=== PATIENT | female | born 1945 | race Hispanic/Latino ===

== ENCOUNTER → 2017-07-14 | Day surgery (SDC) | payer MEDICARE, BC ==
[2017-07-12 11:16] LABS: BASOPHILS % 0.4 % (0.0-1.0); EOSINOPHILS # (AUTO) 0.1 (0.0-0.4); EOSINOPHILS % 1.8 % (0.0-6.0); HEMATOCRIT 33.1 % (34.2-44.1); HEMOGLOBIN 10.8 g/dL (12.0-16.0); LYMPHOCYTES # (AUTO) 0.7 (1.0-3.2); LYMPHOCYTES % 14.7 % (18.0-39.1); MEAN CORPUSCULAR HEMOGLOBIN 30.9 pg (28-32); MEAN CORPUSCULAR HGB CONC 32.6 g/dL (31-35); MEAN CORPUSCULAR VOLUME 94.8 fL (81-99); MONOCYTES # (AUTO) 0.4 (0.2-0.8); NEUTROPHILS # (AUTO) 3.8 (2.1-6.9); NEUTROPHILS % 75.7 % (38.7-80.0); PLATELET COUNT 150 x10e3/uL (140-360); RED BLOOD COUNT 3.49 x10e6/uL (3.6-5.1); RED CELL DISTRIBUTION WIDTH 13.9 % (11.7-14.4)
[2017-07-12 11:38] LABS: ANION GAP 11.4 mmol/L (8-16); CALCIUM 10.6 mg/dL (8.4-10.2); CREATININE, SERUM 1.54 mg/dL (0.57-1.11); POTASSIUM 5.4 mmol/L (3.5-5.1)
--- NOTE | 2017-07-12 11:39 | Diagnostic Imaging Report ---
PROCEDURE: Frontal and lateral views of the chest. COMPARISON: Chest radiograph 03/04/2017 INDICATIONS: PRE-OP FOR STENT PLACEMENT FINDINGS: Lines/tubes: None. Lungs: The lungs are well inflated and clear. There is no evidence of pneumonia or pulmonary edema. Pleura: There is no pleural effusion or pneumothorax. Heart and mediastinum: Aortic arch calcifications. The heart and the mediastinum are normal. Bones: No acute bony abnormality. IMPRESSION: No acute cardiopulmonary disease. Dictated by: Chinmay Zambrano M.D. on 07/12/2017 at 11:38 Electronically approved by: Chinmay Zambrano M.D. on 07/12/2017 at 11:38
[~2017-07-14] MED LIST: ALENDRONATE SOD70 MG PO; AMLODIPINE BESYL5 MG PO; ATORVASTATIN CA40 MG PO; BELLADONNA/OPIUM 60 MG SUPP PR ONE; CEFTIN250 MG PO; CEFUROXIME250 MG PO; DEXAMETHASONE SOD PHOS INJ 4 MG/ML VIAL ONE; DEXTROSE 5% 250ML 250 ML IV ONE; DIPHENOXYLATE-1 EAC2 PO; ECOTRIN325 MG PO; FERROUS SULFAT325 MG PO; GABAPENTIN300 MG PO; GENTAMICIN 80MG/NS 100 ML 100 ML IV ONE; HYDROCODONE-AP1 EA12 PO; IOPAMIDOL 610MG/1ML 300 MG/ML VIAL IV ONE; LEVOFLOXACIN 250MG/D5W 50ML 50 ML ONE; LEVOTHYROXINE88 MCG PO; LIDOCAINE HCL 2% LOCAL INJ 5 ML SDV VIAL INJ ONE; LIPITOR40 MG PO; LOPERAMIDE2 MG PO; LOSARTAN POTAS100 MG PO; LOSARTAN-HCTZ1 EAC1 PO; METFORMIN HCL500 MG PO; NAPROXEN SODIU500 MG PO; ONDANSETRON HCL INJ 2 MG/ML VIAL ONE; PROPOFOL IV EMULSION 10 MG/ML 20 ML VIAL ONE; SERTRALINE HCL50 MG PO; SEVOFLURANE INHAL SOLN 250 ML PEN BTL ONE; TRAMADOL HCL50 M1 PO; TRANSDERM-SCOP1 EACH TOP; VITAMIN C500 M1 PO; VITAMIN C500 MG PO; Z.0.LEVOTHYROXINE150 PO; Z.0.LORAZEPAM1 MG PO; Z.0.METOPROLOL SUCC2 PO; Z.0.ZOFRAN4 MG PO; Z.1.AMLODIPINE-BEN1 PO; Z.1.MINOCYCLINE HC10 PO; [UNRECOGNIZED DRUG - CODE] TD
--- OUTSIDE RECORDS SUMMARY | 2017-07-14 09:09 | XMS REPORT ---
Author Author [facility] Address Unknown Phone Unavailable Care Team Providers Care Residential Field Manager Name Role Phone DINORA PALUMBO Unavailable Unavailable Problems This patient has no known problems. Allergies, Adverse Reactions, Alerts This patient has no known allergies or adverse reactions. Medications This patient has no known medications. Results Test Description Test Time Test Comments Text Results Atomic Results Result Comments CHEST 2 VIEWS [place] [address] Patient Name: ANKITA ROY MR #: [id number] : 1945 Age/Sex: 71/F Req #: [id number] Adm Physician: Ordered by: DINORA PALUMBO MD Report #: [id number] Location: OR Room/Bed: Procedure: [id number] DX/CHEST 2 VIEWS Exam Date: 07/12/17 Exam Time: 1115 REPORT STATUS: Signed PROCEDURE: Frontal and lateral views of the chest. COMPARISON: Chest radiograph 03/04/2017 INDICATIONS: PRE-OP FOR STENT PLACEMENT FINDINGS: Lines/tubes: None. Lungs : The lungs are well inflated and clear. There is no evidence of pneumonia or pulmonary edema. Pleura: There is no pleural effusion or pneumothorax. Heart and mediastinum: Aortic arch calcifications. The heart and the mediastinum are normal. Bones: No acute bony abnormality. IMPRESSION: No acute cardiopulmonary disease. Dictated by: Chinmay Rios M.D. on 07/12/2017 at 11:38 Electronically approved by: Chinmay Rios M.D. on 07/12/2017 at 11:38 Dictated By: CHINMAY RIOS MD COPY TO: DINORA PALUMBO MD CHEST 2 VIEWS [place] [address] Patient Name: ANKITA ROY MR #: [id number] : 1945 Age/Sex: 71/F Req #: [id number] Adm Physician: Ordered by: DINORA PALUMBO MD Report #: [id number] Location: OR Room/Bed: Procedure: [id number] DX/CHEST 2 VIEWS Exam Date: Exam Time: REPORT STATUS: Signed PROCEDURE: CHEST 2 VIEWS COMPARISON: Chest x- ray, 08/18/16. INDICATIONS: pre op for renal stent FINDINGS: Lines and tubes: None Heart size normal. No focal pulmonary opacity, pleural effusion or pneumothorax. Upper abdomen unremarkable with no free air. No acute bony abnormality. Again noted are surgical clips in the abdomen. CONCLUSION: No evidence for acute disease. Dictated by: Randy Monzon M.D. on 03/04/2017 at 15:14 Electronically approved by: Randy Monzon M.D. on 03/04/2017 at 15:14 Dictated By: RANDY MONZON MD 13 COPY TO: DINORA PALUMBO MD RENAL SCAN W/FLOW FUNCTION [address], [place] [address] Patient Name: ANKITA ROY MR #: [id number] : 1945 Age/Sex: 71/F [facility] #: [id number] [facility] Physician: Ordered by: DINORA PALUMBO MD Report #: [id number] Location: ID Room/Bed: Procedure: [id number] NM/RENAL SCAN W/FLOW FUNCTION Exam Date: 02/12/17 Exam Time: 1445 REPORT STATUS: Signed Renal Scan Reason for exam: Hydronephrosis; multiple stent placements in the previous 7 years. Comparison: Prior renal scan 06/12/2016 Radiopharmaceutical: Tc-99m MAG3 9.8 mCi Report: After administration of the radiopharmaceutical, dynamic images of the kidneys were obtained through 40 minutes. LEFT KIDNEY: Perfusion is imperceptible. No tracer is seen in the left renal bed until about 18 minutes post administration of the tracer when some pooling of tracer is seen in the left renal pelvis and proximal ureter. The function of the kidney is too impaired to be able to fill the pelvicalyceal system or ureter to capacity. No drainage of tracer is seen from the pelvicalyceal system because of the minimal amount of tracer excreted. No tracer is seen within the left ureter. RIGHT KIDNEY: Perfusion to the right kidney is prompt. The right kidney has a distorted reniform shape with irregular contour and patchy distribution of tracer throughout the renal parenchyma. Extraction of tracer by the renal parenchyma is normal. Clearance of tracer from the renal parenchyma begins promptly but is not complete by the end of the study. The pelvicalyceal system is not dilated although the renal pelvis is slightly prominent. Some increased pooling of tracer within the renal pelvis is present. Drainage of tracer from the pelvicalyceal system is adequate. No significant stasis of tracer is seen within the right ureter. DIFFERENTIAL RENAL FUNCTION: Left kidney 5% and right kidney 95%. Impression: 1. The left kidney has only a miniscule amount of tracer in the renal parenchyma. The amount of parenchyma may be the same or less than on the prior study of 2016. Drainage cannot be assessed because the pelvicalyceal system does not fill to near capacity. 2. Scan evidence of medical renal disease in the right kidney. Some scarring is present as evidenced by the irregular contour of the kidney. No hydronephrosis is present. No obstruction of the renal collecting system is present. The appearance of the kidney and its drainage pattern are unchanged compared to the prior study of 06/12/2016. Signed by: Dr. Joseph Brito M.D. on 02/13/2017 5:09 PM Dictated By: JOSEPH BRITO MD 08 Transcribed By: BRADLEY on 02/13/171708 COPY TO: DINORA PALUMBO MD
--- OUTSIDE RECORDS SUMMARY | 2017-07-14 09:09 | XMS REPORT | Clinical Summary ---
Author Author [facility] Organization [facility] Address Unknown Phone Unavailable Care Team Providers Care It Security Administrator Name Role Phone Faisal Piña MD PCP Allergies Active Allergy Reactions Severity Noted Date Comments Penicillins 06/12/2016 Current Medications Prescription Sig. Disp. Refills Start End Date Status Date gabapentin (NEURONTIN) Take 300 mg by mouth 3 Active 300 mg capsule (three) times a day. ascorbic acid, vitamin C, Take 500 mg by mouth Active (VITAMIN C) 500 MG tablet daily. losartan (COZAAR) 100 MG Take 100 mg by mouth Active tablet daily. losartan-hydrochlorothiaz Take 1 tablet by mouth Active ermelinda (HYZAAR) 100-25 mg daily. per tablet sertraline (ZOLOFT) 50 MG Take 50 mg by mouth Active tablet daily. ferrous sulfate 325 (65 Take 325 mg by mouth Active FE) MG tablet daily with breakfast. levothyroxine (SYNTHROID, Take 150 mcg by mouth Active LEVOXYL) 150 mcg tablet every morning. atorvastatin (LIPITOR) 40 Take 40 mg by mouth Active MG tablet daily. aspirin (ECOTRIN) 81 MG Take 81 mg by mouth Active enteric coated tablet daily. metFORMIN (GLUCOPHAGE) Take 500 mg by mouth Active 500 mg tablet daily with breakfast. Active Problems Problem Noted Date Hypertensive nephrosclerosis 06/12/2016 Encounters Date Type Specialty Care Team Description 08/18/2016 Telephone Transplant Luisa Gabriel Kidney Eval Appts ( Spoke to pts daughter Marion so we could schedule pts next appt she stated she will need to call me back she said she is taking her mother to all this appts for this month and she is the only one that takes pt to her appts she is not able to bring her at this time. She stated she is going to let her sister know so she could try to schedule the appts that she needs for her. She stated she will call me back when her mother is ready to schedule.) 08/07/2016 Telephone Transplant Christianne Gabrielcy Kidney Eval Appts 07/31/2016 Telephone Transplant GabrielChristiannecy Kidney Eval Appt 07/28/2016 Telephone Transplant Michaela Bolton RD Nutrition Counseling 07/28/2016 Documentation Transplant Michaela Bolton RD 07/28/2016 Telephone Transplant Michaela Bolton RD Nutrition Counseling 07/20/2016 Telephone Transplant Luisa Gabriel Appointment 07/14/2016 Orders Only Transplant Fermin Luque RN ESRD (end stage renal disease) (Primary Dx) after 07/13/2016 Social History Tobacco Use Types Packs/Day Years Used Date Never Smoker Smokeless Tobacco: Never Used Sex Assigned at Date Recorded Not on file Last Filed Vital Signs Not on file Plan of Treatment Health Maintenance Due Date Last Done Comments COLONOSCOPY 09/24/1997 MAMMOGRAM 09/24/1997 ZOSTER VACCINE 2007 INFLUENZA VACCINE 12/15/2016 06/14/2012 PNEUMOCOCCAL Completed 09/22/2010 POLYSACCHARIDE VACCINE AGE 65 AND OVER PNEUMOCOCCAL-13 Completed 10/04/2015 Results Not on fileafter 07/13/2016 Insurance Payer Benefit Subscriber ID Type Phone Address Plan / Group MEDICARE MEDICARE xxxxxxxxxx Medicare [place], [place] PART B [facility] xxxxxxxxx HMO/PPO THCARE CHOICE/CHO ICE + BRENDA RAHMAN Transplant Self 1945 Home: [address] [place] [address]
--- NOTE | 2017-09-05 13:16 | Operative Report ---
DATE OF PROCEDURE: July 14, 2017 PREOPERATIVE DIAGNOSES 1. Left ureteral stricture. 2. Left hydronephrosis due to stricture. 3. Foreign body (left indwelling stent). 4. Atrophic vaginitis. POSTOPERATIVE DIAGNOSES 1. Left ureteral stricture. 2. Left hydronephrosis due to stricture. 3. Foreign body (left indwelling stent). 4. Atrophic vaginitis. PROCEDURES PERFORMED 1. Cystourethroscopy with complicated removal of left indwelling ureteral stent (separately performed with separate scope for the diagnosis of stent). 2. Cystourethroscopy with dilation of left ureteral stricture (separately performed for diagnosis of stricture). 3. Cystourethroscopy with insertion of left indwelling ureteral stent (separately performed to relieve the hydronephrosis). 4. Cystourethroscopy with right ureteral catheterization and retrograde ureteropyelography. 5. Interpretation of retrograde ureteropyelography. 6. Urological services for supervision and interpretation of stricture dilation. 7. Pelvic examination under anesthesia. ANESTHESIA: General. COMPLICATIONS: None. CLINICAL SUMMARY: Brenda Rahman is a 71-year-old woman with an atrophic left kidney. This kidney has been destroyed by ureteral stricture. Her creatinine is approximately 1.5. She has chronic renal insufficiency with functionally solitary right kidney. Multiple times, the patient has been recommended to undergo nephrectomy. She is resistant and desires regular ureteral stenting and stent changes at the present time. She is aware of the risks of bleeding, infection, injury to adjacent structures, sepsis, and need for additional procedures and elected to proceed. OPERATIVE PROCEDURE IN DETAIL: Informed consent was verified. Brenda Rahman was properly identified, taken to the operating room, and placed on the cystoscopy table in supine position. Anesthesia was uneventfully begun. The patient was then carefully and gently repositioned in dorsal lithotomy position with all pressure points well padded and her genitalia were prepared and draped in usual sterile fashion. The 22.5-Khmer cystoscope sheath with an obturator in place was atraumatically inserted in the patient's urethra and the bladder was drained. Panendoscopy in the bladder revealed no suspicious growths, lesions, no tumors, and no stones and no diverticula. Normally positioned and configured ureteral orifices were identified. Some fine sand was noted and it was evacuated. A guidewire was then placed alongside the stent and guided to the level of the patient's kidney. The stent was then grasped, completely removed, and discarded. Double-lumen ureteral catheter was then utilized as a coaxial dilator sheath. It was passed over the guidewire and guided to the level of the patient's kidney. Contrast was injected. Under cystoscopic and fluoroscopic guidance, a left-sided indwelling ureteral stent was coiled in patient's kidney as well as the patient's bladder. The retaining suture was cut short. The ureteral catheter was used to cannulate the right ureter and retrograde ureteropyelography was performed. Interpretation of retrograde ureteropyelography: Contrast was instilled in retrograde fashion bilaterally. The right side exhibited no hydronephrosis. No suspicious lesions. The ureter exhibited some tortuosity, was not obstructed. The left hand side exhibited an extremely small kidney with a dilated renal pelvis and proximal ureter. The stent was in good position coiled in the patient's kidney as well as the patient's bladder at the end of the case. Patient's bladder was then drained. The cystoscope was withdrawn. Pelvic examination under anesthesia revealed atrophic vaginitis. No suspicious mucosal lesions were identified. There were no abnormal palpable pelvic masses that could be appreciated. Patient was then uneventfully reversed from anesthesia and taken to recovery room in stable condition. Explicit postoperative instructions were given. We will follow the patient up in the office. Job#: [id number] BEATA
== END | disposition home or self-care (01) ==
LOC: OR 09:06
PROVIDERS: ATTEND Urology
DX: N13.1 Hydronephrosis with ureteral stricture, not elsewhere classified (principal); Z46.6 Encounter for fitting and adjustment of urinary device; N95.2 Postmenopausal atrophic vaginitis; N26.9 Renal sclerosis, unspecified; N13.8 Other obstructive and reflux uropathy; N39.0 Urinary tract infection, site not specified; E11.22 Type 2 diabetes mellitus with diabetic chronic kidney disease; I12.9 Hypertensive chronic kidney disease with stage 1 through stage 4 chronic kidney disease, or unspecified chronic kidney disease; N18.9 Chronic kidney disease, unspecified; I45.10 Unspecified right bundle-branch block; Z01.810 Encounter for preprocedural cardiovascular examination; Z01.812 Encounter for preprocedural laboratory examination; Z01.818 Encounter for other preprocedural examination; Z79.82 Long term (current) use of aspirin; Z86.73 Personal history of transient ischemic attack (TIA), and cerebral infarction without residual deficits; Z84.1 Family history of disorders of kidney and ureter
CPT/HCPCS: 36415 ×2; 52332; 52341; 71046; 74420; 80048; 82948; 84132; 85025; 93005; C1758; C2617; J1100; J1580; J1956; J2001; J2405; Q9967

== ENCOUNTER → 2017-10-20 | Day surgery (SDC) | payer MEDICARE, BC ==
[2017-10-19 15:44] LABS: HEMATOCRIT 32.2 % (34.2-44.1); HEMOGLOBIN 10.5 g/dL (12.0-16.0); MEAN CORPUSCULAR HEMOGLOBIN 30.9 pg (28-32); MEAN CORPUSCULAR HGB CONC 32.6 g/dL (31-35); MEAN CORPUSCULAR VOLUME 94.7 fL (81-99); RED CELL DISTRIBUTION WIDTH 13.3 % (11.7-14.4)
[2017-10-19 15:45] LABS: EOSINOPHILS # (AUTO) 1.8 (0.0-0.4); EOSINOPHILS % 0.1 % (0.0-6.0); LYMPHOCYTES # (AUTO) 15.8 (1.0-3.2); LYMPHOCYTES % 0.8 % (18.0-39.1); MONOCYTES # (AUTO) 6.9 (0.2-0.8); MONOCYTES % 0.4 % (4.4-11.3); NEUTROPHILS # (AUTO) 74.9 (2.1-6.9); NEUTROPHILS % 3.8 % (38.7-80.0); PLATELET COUNT 163 x10e3/uL (140-360)
[2017-10-19 16:05] LABS: ANION GAP 10.8 mmol/L (8-16); POTASSIUM 4.8 mmol/L (3.5-5.1)
[2017-10-19 16:06] LABS: ALBUMIN 3.7 g/dL (3.5-5.0); ALBUMIN/GLOBULIN RATIO 1.1 (0.8-2.0); CALCIUM 10.6 mg/dL (8.4-10.2); CREATININE, SERUM 1.41 mg/dL (0.57-1.11)
[~2017-10-20] MED LIST changes: +BELLADONNA/OPIUM 30 MG SUPP RC ONE; -BELLADONNA/OPIUM 60 MG SUPP PR ONE; +DESFLURANE 240 ML BTL INH ONE; -DEXTROSE 5% 250ML 250 ML IV ONE; +EPHEDRINE SULFATE INJ 50 MG/10 ML SYR ONE; +FENTANYL CITRATE/PF 100MCG/2 ML INJ ONE; -GENTAMICIN 80MG/NS 100 ML 100 ML IV ONE; -LEVOFLOXACIN 250MG/D5W 50ML 50 ML ONE; +LEVOFLOXACIN 500MG/D5W 100ML 100 ML IV ONE; +MIDAZOLAM HCL 2 MG/2 ML VIAL ONE; -PROPOFOL IV EMULSION 10 MG/ML 20 ML VIAL ONE; +PROPOFOL IV EMULSION 10 MG/ML 50 ML VIAL ONE; -SEVOFLURANE INHAL SOLN 250 ML PEN BTL ONE
--- OUTSIDE RECORDS SUMMARY | 2017-10-20 07:10 | XMS REPORT | Clinical Summary ---
Author Author [facility] Organization [facility] Address Unknown Phone Unavailable Care Team Providers Care Hop Weigher Name Role Phone Faisal Piña MD PCP [...] Problems Problem Noted Date Hypertensive nephrosclerosis 06/12/2016 Social History Tobacco Use Types Packs/Day Years Used Date Never Smoker Smokeless Tobacco: Never Used Sex Assigned at Date Recorded Not on file Last Filed Vital Signs Not on file Plan of Treatment Health Maintenance Due Date Last Done Comments BREAST CANCER SCREENING 09/24/1997 COLON CANCER SCREENING 09/24/1997 SHINGRIX VACCINE (#1) 09/24/1997 ZOSTER VACCINE 2007 INFLUENZA VACCINE 12/15/2017 06/14/2012 PNEUMOCOCCAL Completed 09/22/2010 POLYSACCHARIDE VACCINE AGE 65 AND OVER PNEUMOCOCCAL-13 Completed 10/04/2015 Results Not on fileafter 10/19/2016 Insurance Payer Benefit Subscriber ID Type Phone Address Plan / Group MEDICARE MEDICARE xxxxxxxxxx Medicare [place], [place] PART B [facility] xxxxxxxxx HMO/PPO THCARE CHOICE/CHO ICE + BRENDA RAHMAN Transplant Self 1945 Home: [address] [place] [address]
--- NOTE | 2017-11-30 15:05 | Operative Report ---
DATE OF PROCEDURE: October 20, 2017 PREOPERATIVE DIAGNOSES: 1. Left ureteral stricture. 2. Left hydronephrosis due to stricture. 3. Left foreign body (indwelling ureteral stent). 4. Atrophic vaginitis. POSTOPERATIVE DIAGNOSES: 1. Left ureteral stricture. 2. Left hydronephrosis due to stricture. 3. Left foreign body (indwelling ureteral stent). 4. Atrophic vaginitis. PROCEDURES PERFORMED: 1. Cystourethroscopy with complicated removal of left indwelling ureteral stent (separate procedure performed with separate scope for the diagnosis of stent). 2. Cystourethroscopy with dilation of left ureteral stricture (separate procedure performed for diagnosis of the stricture). 3. Radiological services for supervision and interpretation of stricture dilation. 4. Cystourethroscopy with insertion of left indwelling ureteral stent (separate procedure performed to relieve the hydronephrosis). 5. Interpretation of retrograde ureteropyelography. 6. Pelvic examination under anesthesia. ANESTHESIA: General. COMPLICATIONS: None. CLINICAL SUMMARY: Brenda Rahman is a 72-year-old woman with the above preoperative diagnoses, who is brought for the above procedures. The patient has a 5% functionality of her left kidney and she has been recommended to undergo left nephrectomy numerous times. The patient chooses to continue with stent changing as has been done. She is aware of the risks of bleeding, infection, injury to adjacent structures, need for additional procedures and elected to proceed. OPERATIVE PROCEDURE IN DETAIL: Informed consent was verified. Brenda Rahman was properly identified, taken to the operating room, placed on the cystoscopy table in supine position. Anesthesia was uneventfully begun. The patient was then carefully and gently re-positioned in the dorsal lithotomy position with all pressure points well padded. Her genitalia were prepared and draped in usual sterile fashion. The 22.5-Romansh cystoscope sheath with obturator in place was atraumatically inserted to the patient's urethra and the bladder was drained. Panendoscopy of the urinary bladder revealed a stent emerging from the left ureteral orifice. There were no suspicious mucosal lesions. A guidewire was then placed alongside the stent and guided to the level of the patient's kidney. The stent was then grasped completely and removed and discarded. A double lumen ureteral catheter was then utilized as a coaxial dilator sheath. It was passed over the guidewire and guided to the level of the patient's renal pelvis thus dilating the severe ureteral stricture. This resulted in a clear hydronephrotic drip. Contrast was injected. With cystoscopic and fluoroscopic guidance, a left-sided indwelling ureteral stent was then placed. It was coiled in the patient's kidney as well as patient's bladder. The retaining suture was cut short. Interpretation of retrograde ureterography: Contrast was instilled in retrograde fashion on the left hand side. The patient's left kidney was very small. There was chronic appearing hydronephrosis and fullness. The stent was in good position, coiled in the patient's kidney as well as the patient's bladder at the end of the case. There were multiple clips within the abdomen. The patient's bladder was drained. The cystoscope was withdrawn. Pelvic examination under anesthesia revealed atrophic vaginitis with a very short vagina. No suspicious mucosal lesions were identified and there were no abnormal palpable pelvic masses that could be appreciated. Belladonna and opium suppository was placed and the patient was uneventfully reversed from anesthesia and taken to recovery room in stable condition. There were no complications during the procedure. She tolerated the procedure well. Explicit postoperative instructions were given. Will follow the patient up in the office. Plans will be to change her stent in the near future and on a regular basis should the patient not allow us to perform a left nephrectomy on her as recommended. Job#: [id number] cc:LAST ERICKSON MD
== END | disposition home or self-care (01) ==
LOC: OR 07:08
PROVIDERS: ATTEND Urology
DX: N13.1 Hydronephrosis with ureteral stricture, not elsewhere classified (principal); Z46.6 Encounter for fitting and adjustment of urinary device; N95.2 Postmenopausal atrophic vaginitis; M19.90 Unspecified osteoarthritis, unspecified site; I10 Essential (primary) hypertension; E78.5 Hyperlipidemia, unspecified; E11.9 Type 2 diabetes mellitus without complications; E03.9 Hypothyroidism, unspecified; I69.344 Monoplegia of lower limb following cerebral infarction affecting left non-dominant side; F32.9 Major depressive disorder, single episode, unspecified; F41.9 Anxiety disorder, unspecified; Z88.0 Allergy status to penicillin; Z01.810 Encounter for preprocedural cardiovascular examination; Z01.812 Encounter for preprocedural laboratory examination; Z79.82 Long term (current) use of aspirin; Z79.84 Long term (current) use of oral hypoglycemic drugs; Z85.41 Personal history of malignant neoplasm of cervix uteri
CPT/HCPCS: 36415 ×2; 52332; 52341; 74420; 80053; 82948; 85025; 87086; 93005; C2617; J1100; J1956; J2001; J2250; J2405; Q9967

== ENCOUNTER 2018-03-14 10:51 | Inpatient (IN) | payer BC, MEDICARE ==
--- NOTE | 2018-03-11 15:23 | Diagnostic Imaging Report ---
EXAMINATION: CHEST 2 VIEWS INDICATION: Hydronephrosis. Abdominal pain. Urethral stricture. COMPARISON: July 12, 2017 FINDINGS: TUBES and LINES: None. LUNGS: Lungs are well inflated. Lungs are clear. There is no evidence of pneumonia or pulmonary edema. PLEURA: No pleural effusion or pneumothorax. HEART AND MEDIASTINUM: Tortuous thoracic aorta with calcification at the aortic arch. Heart normal in size. BONES AND SOFT TISSUES: No acute osseous lesion. Soft tissues are unremarkable. UPPER ABDOMEN: No free air under the diaphragm. IMPRESSION: No acute thoracic abnormality. Signed by: Dr. J Carlos Holm M.D. on 03/11/2018 3:19 PM
[2018-03-11 15:30] LABS: BASOPHILS % 0.2 % (0.0-1.0); EOSINOPHILS # (AUTO) 0.2 (0.0-0.4); EOSINOPHILS % 3.3 % (0.0-6.0); HEMATOCRIT 30.5 % (34.2-44.1); HEMOGLOBIN 9.6 g/dL (12.0-16.0); LYMPHOCYTES # (AUTO) 0.9 (1.0-3.2); LYMPHOCYTES % 16.4 % (18.0-39.1); MEAN CORPUSCULAR HEMOGLOBIN 30.7 pg (28-32); MEAN CORPUSCULAR HGB CONC 31.5 g/dL (31-35); MEAN CORPUSCULAR VOLUME 97.4 fL (81-99); MONOCYTES # (AUTO) 0.3 (0.2-0.8); MONOCYTES % 6.3 % (4.4-11.3); NEUTROPHILS % 73.6 % (38.7-80.0); PLATELET COUNT 155 x10e3/uL (140-360); RED BLOOD COUNT 3.13 x10e6/uL (3.6-5.1); RED CELL DISTRIBUTION WIDTH 13.5 % (11.7-14.4)
[2018-03-11 15:54] LABS: ALBUMIN 4.1 g/dL (3.5-5.0); ALBUMIN/GLOBULIN RATIO 1.3 (0.8-2.0); ANION GAP 11.9 mmol/L (8-16); CALCIUM 11.1 mg/dL (8.4-10.2); CREATININE, SERUM 1.16 mg/dL (0.57-1.11); POTASSIUM 4.9 mmol/L (3.5-5.1)
[2018-03-14] VITALS (20 sets, daily range): BP systolic 134–159; BP diastolic 59–80
[~2018-03-14] VITALS: Ht 165.1 cm; Wt 73.5 kg
[~2018-03-14 10:51] MED LIST changes: +ASPIR 8181 MG PO; -BELLADONNA/OPIUM 30 MG SUPP RC ONE; -DESFLURANE 240 ML BTL INH ONE; -DEXAMETHASONE SOD PHOS INJ 4 MG/ML VIAL ONE; -EPHEDRINE SULFATE INJ 50 MG/10 ML SYR ONE; -FENTANYL CITRATE/PF 100MCG/2 ML INJ ONE; -IOPAMIDOL 610MG/1ML 300 MG/ML VIAL IV ONE; -LEVOFLOXACIN 500MG/D5W 100ML 100 ML IV ONE; -LIDOCAINE HCL 2% LOCAL INJ 5 ML SDV VIAL INJ ONE; -MIDAZOLAM HCL 2 MG/2 ML VIAL ONE; -ONDANSETRON HCL INJ 2 MG/ML VIAL ONE; -PROPOFOL IV EMULSION 10 MG/ML 50 ML VIAL ONE; +SYNTHROID100 MCG PO
--- OUTSIDE RECORDS SUMMARY | 2018-03-14 10:54 | XMS REPORT | Clinical Summary ---
Author Author [facility] Organization [facility] Address Unknown Phone Unavailable Care Team Providers Care Motorsports Technician Name Role Phone Ulices Piña MD PCP Allergies Active Allergy Reactions [...] CANCER SCREENING 09/24/1997 SHINGRIX VACCINE (#1) 09/24/1997 INFLUENZA VACCINE 12/15/2017 06/14/2012 PNEUMOCOCCAL Completed 09/22/2010 POLYSACCHARIDE VACCINE AGE 65 AND OVER ZOSTER VACCINE Completed 11/17/2011 PNEUMOCOCCAL-13 Completed 10/04/2015 Results Not on fileafter 03/13/2017 Insurance Payer Benefit Subscriber ID Type Phone Address Plan / Group MEDICARE MEDICARE xxxxxxxxxx Medicare [place], [place] PART B [facility] xxxxxxxxx HMO/PPO THCARE CHOICE/CHO ICE + Home: [address] [place] [address] RAHMANBRENDA COLON Transplant Self 1945 Home[address] [place] [address]
[2018-03-14] MEDS ORDERED: LIDOCAINE HCL 2% LOCAL INJ 5 ML SDV VIAL INJ ONE (11:33)
[2018-03-14] MEDS ORDERED: SEVOFLURANE INHAL SOLN 250 ML PEN BTL ONE (11:33)
[2018-03-14] MEDS ORDERED: DEXAMETHASONE SOD PHOS INJ 4 MG/ML VIAL ONE (11:33)
[2018-03-14] MEDS ORDERED: EPHEDRINE SULFATE INJ 50 MG/10 ML SYR ONE (11:33)
[2018-03-14] MEDS ORDERED: NEOSTIGMINE 5 MG/5ML SYR ONE (11:33)
[2018-03-14] MEDS ORDERED: GLYCOPYRROLATE INJ 1MG/ 5 ML SYR ONE (11:33)
[2018-03-14] MEDS ORDERED: PROPOFOL IV EMULSION 10 MG/ML 20 ML VIAL ONE (11:33)
[2018-03-14] MEDS ORDERED: ACETAMINOPHEN 1000 MG/100 ML IV ONE (11:33)
[2018-03-14] MEDS ORDERED: ONDANSETRON HCL INJ 2 MG/ML VIAL ONE ×2 (11:33→15:05)
[2018-03-14] MEDS ORDERED: LIDOCAINE HCL 2% JELLY 5 ML TUBE ONE (11:33)
[2018-03-14] MEDS ORDERED: ROCURONIUM BROMIDE 10 MG/ML 5ML VIAL ONE (11:33)
[2018-03-14] MEDS ORDERED: LEVOFLOXACIN 250MG/D5W 50ML 50 ML ONE (11:43)
[2018-03-14] MEDS ORDERED: CLINDAMYCIN 300MG 50 ML IV ONE (11:43)
[2018-03-14] MEDS ORDERED: MANNITOL 25% 12.5GM/50ML 0 ML ONE (12:06)
[2018-03-14] MEDS ORDERED: GELATIN SPONGE 12-7MM ONE (12:06)
[2018-03-14] MEDS ORDERED: SCOPOLAMINE 1.5 MG PATCH ONE (12:14)
[2018-03-14] MEDS ORDERED: HYDROMORPHONE 2MG/ML 2 MG/ML ML ONE (14:56)
[2018-03-14] MEDS ORDERED: ACETAMINOPHEN 1000 MG/100 ML IV PRN (15:00)
[2018-03-14] MEDS ORDERED: NALOXONE HCL INJ 0.4 MG/ML AMP IV PRN (15:00)
[2018-03-14] MEDS: LEVOFLOXACIN 250MG/D5W 50ML 50 ML IV SCH (15:00)
[2018-03-14] MEDS ORDERED: MORPHINE SULFATE 1 MG/ML 30ML PCA IV PRN (15:00)
[2018-03-14] MEDS ORDERED: MORPHINE SULFATE 1 MG/ML 30ML PCA ONE (15:05)
--- OUTSIDE RECORDS SUMMARY | 2018-03-14 15:28 | XMS REPORT | Clinical Summary ---
Author Author [facility] Organization [facility] Address Unknown Phone Unavailable Care Team Providers Care Play Reader Name Role Phone Ulices Piña MD PCP [...] Plan / Group MEDICARE MEDICARE xxxxxxxxxx Medicare [place], [place] PART B [facility] xxxxxxxxx HMO/PPO THCARE CHOICE/CHO ICE + Home: [address] [place] [address] RAHMANBRENDA COLON Transplant Self 1945 Home: [address] [place] [address]
[2018-03-14] MEDS ORDERED: METOCLOPRAMIDE HCL 10 MG/2ML VIAL ONE (15:48)
--- NOTE | 2018-03-14 15:48 | Diagnostic Imaging Report ---
Examination: Single AP view of the chest. COMPARISON: Chest 2 views 03/11/2018 INDICATION: Suspected pneumothorax IMPRESSION: 1. Lines and Tubes: Enteric tube has its distal tip coiled in the stomach fundus. 2. No definite pneumothorax is identified. Minimal left basal atelectatic changes. No consolidation. 3. Cardiomediastinal silhouette is normal. Mild central venous congestion. 4. No acute bony abnormalities. Signed by: Dr. Ulices Garcia M.D. on 03/14/2018 3:44 PM
[2018-03-14] MEDS: DOCUSATE SODIUM 100 MG CAP PO SCH (17:00)
[2018-03-14] MEDS ORDERED: MIDAZOLAM HCL 2 MG/2 ML VIAL ONE (17:13)
[2018-03-14] MEDS ORDERED: FENTANYL CITRATE/PF 100MCG/2 ML INJ ONE (17:13)
--- NOTE | 2018-03-14 17:55 | NUR ---
RECVD PT FROM RECOVERY ON STRETCHER. MONITOR ON. FAMILY AT BEDSIDE, ASSESSMENT COMPLETED AND RECORDED.
[2018-03-14] MEDS: SODIUM CHLORIDE 0.9% 250ML IRRIG IR SCH ×2 (19:00→23:00)
--- NOTE | 2018-03-14 19:15 | NUR ---
BEDSIDE REPORT GIVEN TO ONCOMING NURSE.
[2018-03-14] MEDS: SOD CHL 0.45%/POT CHL 20MEQ 1,000 ML IV SCH (21:45)
[2018-03-14] MEDS ORDERED: SODIUM CHLORIDE 0.9% 250ML 250 ML ONE (21:56)
[2018-03-15] VITALS (30 sets, daily range): BP systolic 127–167; BP diastolic 55–107
[2018-03-15] MEDS: SOD CHL 0.45%/POT CHL 20MEQ 1,000 ML IV SCH ×4 (00:07→21:59)
[2018-03-15] MEDS: SODIUM CHLORIDE 0.9% 250ML IRRIG IR SCH ×5 (03:00→13:27)
[2018-03-15 05:50] LABS: BASOPHILS % 0.1 % (0.0-1.0); HEMATOCRIT 28.7 % (34.2-44.1); HEMOGLOBIN 9.3 g/dL (12.0-16.0); LYMPHOCYTES # (AUTO) 0.3 (1.0-3.2); LYMPHOCYTES % 3.2 % (18.0-39.1); MEAN CORPUSCULAR HEMOGLOBIN 31.6 pg (28-32); MEAN CORPUSCULAR HGB CONC 32.4 g/dL (31-35); MEAN CORPUSCULAR VOLUME 97.6 fL (81-99); MONOCYTES # (AUTO) 0.5 (0.2-0.8); NEUTROPHILS # (AUTO) 7.6 (2.1-6.9); NEUTROPHILS % 90.3 % (38.7-80.0); PLATELET COUNT 137 x10e3/uL (140-360); RED BLOOD COUNT 2.94 x10e6/uL (3.6-5.1); RED CELL DISTRIBUTION WIDTH 13.3 % (11.7-14.4)
[2018-03-15 05:53] LABS: ANION GAP 13.9 mmol/L (8-16); CALCIUM 10.1 mg/dL (8.4-10.2); CREATININE, SERUM 0.99 mg/dL (0.57-1.11); POTASSIUM 4.9 mmol/L (3.5-5.1)
--- NOTE | 2018-03-15 07:00 | NUR ---
BEDSIDE REPORT RECVD. ASSESSMENT COMPLETED AND RECORDED. VSS AND RECORDED. FAMILY AT BEDSIDE PT AND FAMILY VERBALIZE UNDERSTANDING AND CONSENT OF CURRENT POC. DR PALUMBO HERE MAKING ROUNDS, OK TO DC NGT AND MOVE TO [facility].
[2018-03-15] MEDS: DOCUSATE SODIUM 100 MG CAP PO SCH ×2 (07:48→17:00)
--- NOTE | 2018-03-15 09:00 | NUR ---
pt is moving with assistance of her adult children at bedside. she states to be pain free at this time.
[2018-03-15] MEDS ORDERED: MORPHINE SULFATE 1 MG/ML 30ML PCA IV PRN (11:00)
[2018-03-15] MEDS: DIPHENHYDRAMINE HCL INJ 50 MG/ML VIAL IM PRN (11:26)
--- NOTE | 2018-03-15 11:44 | NUR ---
pt w/o itching, medicated as per emar. family at bedside.
[2018-03-15] MEDS ORDERED: DEXTROSE 50% SYRINGE 50 ML IV PRN (15:00)
[2018-03-15] MEDS ORDERED: HYDRALAZINE HCL 20 MG/ML VIAL IV PRN (15:00)
[2018-03-15] MEDS: LEVOFLOXACIN 250MG/D5W 50ML 50 ML IV SCH (15:15)
[2018-03-15] MEDS: FAMOTIDINE 20 MG/2 ML VIAL IV SCH ×2 (15:15→20:23)
[2018-03-15] MEDS: INSULIN REGULAR, HUMAN 100 UNIT/1 ML 3ML VIAL SQ SCH ×2 (16:30→20:47)
--- NOTE | 2018-03-15 16:58 | NUR ---
Nutrition Screen Note RD Recommendation for Physician: -As medically feasible, advance to regular diet -Encourage PO and hydration Plan of Care: RD following, monitor for tolerance and adequacy Nutrition reason for involvement: MD Consult Primary Diagnose(s): atrophic left kidney PMH: none recorded in chart Ht: 65in Wt: 155.04lb BMI: 25.8kg/m2 IBW: 125lb RD Assessment: (03/15) Chart reviewed. Labs and meds reviewed. 72yo F, post-op day 2 (nephrectomy). Pt is a poor historian; daughter presents on bedside to provide hx. Per daughter, there was no change in PO intake or appetite TITLE CAMERA OPERATOR. Pt usually eats very small portioned meals 2-3x a day at home. Pt lives with spouse at home. No recent weight loss noted, per daughter. No complain of N/V/D/C. No reason stated for RD consult. Will continue to monitor and follow. Current Diet: NPO Malnutrition Evaluation (03/15) The patient does not meet criteria for a specified degree of malnutrition at this time. Will re-evaluate at follow-up as appropriate. Diet Education Needs Assessment: Diet education not indicated. - NPO Nutrition Care Level: low Signed: Joanna See, MS, RD, LD
--- NOTE | 2018-03-15 18:23 | NUR ---
Received patient from ICU, she is sleeping but is easily awaken. No apparent distress noted. Patient noted with POULTRY PINNER pump, Frey catheter, dressing to left lateral abdomen/back noted DCI, MACHO drain in placed. Family at the bedside. Call light within reach.
--- NOTE | 2018-03-15 19:01 | NUR ---
Report given to Tanisha Delacruz RN
--- NOTE | 2018-03-15 19:49 | NUR ---
upon walking rounds, patient family stated they gave patient about 150 ml of water. reeducated family and patient on NPO status. understanding verbalized.
--- NOTE | 2018-03-15 20:30 | NUR ---
patient received to room with orders for tele, upon assessment, no tele noted. charge nurse notified.
[2018-03-16] VITALS (8 sets, daily range): BP systolic 137–186; BP diastolic 65–81
[2018-03-16] MEDS: SOD CHL 0.45%/POT CHL 20MEQ 1,000 ML IV SCH ×2 (05:26→15:15)
[2018-03-16 05:54] LABS: BASOPHILS % 0.3 % (0.0-1.0); EOSINOPHILS # (AUTO) 0.1 (0.0-0.4); EOSINOPHILS % 1.7 % (0.0-6.0); HEMATOCRIT 27.5 % (34.2-44.1); HEMOGLOBIN 8.7 g/dL (12.0-16.0); LYMPHOCYTES # (AUTO) 0.4 (1.0-3.2); LYMPHOCYTES % 6.6 % (18.0-39.1); MEAN CORPUSCULAR HEMOGLOBIN 31.5 pg (28-32); MEAN CORPUSCULAR HGB CONC 31.6 g/dL (31-35); MEAN CORPUSCULAR VOLUME 99.6 fL (81-99); MONOCYTES # (AUTO) 0.5 (0.2-0.8); MONOCYTES % 7.1 % (4.4-11.3); NEUTROPHILS # (AUTO) 5.4 (2.1-6.9); NEUTROPHILS % 83.8 % (38.7-80.0); PLATELET COUNT 133 x10e3/uL (140-360); RED BLOOD COUNT 2.76 x10e6/uL (3.6-5.1); RED CELL DISTRIBUTION WIDTH 13.4 % (11.7-14.4)
[2018-03-16 06:01] LABS: CALCIUM 9.6 mg/dL (8.4-10.2); CREATININE, SERUM 0.94 mg/dL (0.57-1.11)
[2018-03-16] MEDS: INSULIN REGULAR, HUMAN 100 UNIT/1 ML 3ML VIAL SQ SCH ×4 (07:30→21:00)
[2018-03-16] MEDS: DOCUSATE SODIUM 100 MG CAP PO SCH ×2 (09:00→17:00)
[2018-03-16] MEDS: FAMOTIDINE 20 MG/2 ML VIAL IV SCH ×2 (09:30→20:26)
--- NOTE | 2018-03-16 10:00 | NUR ---
MD PALUMBO INTO SEE PT, DISCUSSED POC
[2018-03-16] MEDS ORDERED: BISACODYL 10 MG SUPP PR NR ×2 (10:45→12:45)
--- NOTE | 2018-03-16 11:55 | NUR ---
PT LIANG DC'D PER MD ORDER, AND DULCOLAX SUPP GIVEN PER MD ORDER , PT TOLERATED WELL
--- NOTE | 2018-03-16 12:30 | NUR ---
AMBULATING IN HALLWAY WITH PHYSICAL THERAPIST AND USE OF WALKER, FAMILY AT SIDE
[2018-03-16] MEDS: LEVOFLOXACIN 250MG/D5W 50ML 50 ML IV SCH (15:15)
--- NOTE | 2018-03-16 17:07 | NUR ---
PT STILL HAS NO URGE TO VOID AT THIS TIME, DENIES PASSING ANY FLATUS, SITTING ON SIDE OF BED, CALL LIGHT WITHIN REACH
--- NOTE | 2018-03-16 18:30 | NUR ---
SPOKE WITH MD Madeline PALUMBO, ORDERS NOTED TO BLADDER SCAN AND IF > 300ML, PLACE AZUL, Addendum: 03/16/18 at 1846 by Viky Guadarrama RN PLACE [facility] AZ[facility]
--- NOTE | 2018-03-16 18:46 | NUR ---
BLADDER SCAN 415ML, PT MADE AWARE OF ORDER TO PLACE LIANG PER MD Madeline PALUMBO, PT VERBALIZED UNDERSTANDING, CALL LIGHT WITHIN REACH, FAMILY AT SIDE
--- NOTE | 2018-03-16 19:34 | NUR ---
16FR LIANG PLACED PER MD ORDER, 400ML CLEAR YELLOW URINE NOTED, PT TOLERATED WELL
[2018-03-17] VITALS (8 sets, daily range): BP systolic 146–163; BP diastolic 63–73
[2018-03-17 05:53] LABS: BASOPHILS % 0.2 % (0.0-1.0); EOSINOPHILS % 0.7 % (0.0-6.0); HEMATOCRIT 26.6 % (34.2-44.1); HEMOGLOBIN 8.5 g/dL (12.0-16.0); LYMPHOCYTES # (AUTO) 0.4 (1.0-3.2); LYMPHOCYTES % 6.5 % (18.0-39.1); MEAN CORPUSCULAR HEMOGLOBIN 30.8 pg (28-32); MEAN CORPUSCULAR VOLUME 96.4 fL (81-99); MONOCYTES # (AUTO) 0.4 (0.2-0.8); MONOCYTES % 7.2 % (4.4-11.3); NEUTROPHILS # (AUTO) 5.2 (2.1-6.9); NEUTROPHILS % 84.7 % (38.7-80.0); PLATELET COUNT 129 x10e3/uL (140-360); RED BLOOD COUNT 2.76 x10e6/uL (3.6-5.1); RED CELL DISTRIBUTION WIDTH 13.1 % (11.7-14.4)
[2018-03-17 06:01] LABS: ANION GAP 12.7 mmol/L (8-16); CALCIUM 10.1 mg/dL (8.4-10.2); CREATININE, SERUM 0.98 mg/dL (0.57-1.11); MAGNESIUM 1.5 MG/DL (1.3-2.1); POTASSIUM 4.7 mmol/L (3.5-5.1)
--- NOTE | 2018-03-17 06:04 | NUR ---
Wound dressing to left lateral abdomen changed. Incision appears approximated, trena intact & no drainage noted. Bruising noted around incision site.
[2018-03-17] MEDS ORDERED: HYDRALAZINE HCL 20 MG/ML VIAL IV PRN (06:45)
[2018-03-17] MEDS ORDERED: ACETAMINOPHEN 325 MG TAB PO PRN (06:45)
[2018-03-17] MEDS ORDERED: MORPHINE SULFATE INJ 4 MG/ML INJ IV PRN (06:45)
[2018-03-17] MEDS: AMLODIPINE BESYLATE 10 MG TAB PO SCH ×2 (07:22→08:50)
[2018-03-17] MEDS: INSULIN REGULAR, HUMAN 100 UNIT/1 ML 3ML VIAL SQ SCH ×4 (07:30→21:00)
--- NOTE | 2018-03-17 07:41 | Diagnostic Imaging Report ---
EXAM: Abdomen 1 Views INDICATION: Rule out ileus/small bowel obstruction COMPARISON: KUB dated 05/08/2016. Findings: Multiple surgical clips are present in the abdomen and pelvis. Catheter remnants project over the right iliac bone and left sacroiliac joint, unchanged. Air filled prominent small bowel loops measuring up to 2.9 cm. Air is seen in a normal caliber proximal colon. No evidence of free air. Aortic atherosclerotic calcifications. Degenerative changes of the SI joints and lumbar spine. IMPRESSION: Air filled prominent small bowel loops with air in the proximal colon, more likely representing ileus, although partial small bowel obstruction can have a similar appearance. Follow-up abdominal radiograph with upright views may be considered. Signed by: Dr. Manny Rodríguez MD on 03/17/2018 7:38 AM
--- NOTE | 2018-03-17 08:00 | NUR ---
Assisted patient to sit up in bed, tolerated with Clear ADA breakfast, rating pain 3/10 on left back, dressing intact, No Distress noted
[2018-03-17] MEDS: FAMOTIDINE 20 MG/2 ML VIAL IV SCH ×2 (08:05→21:10)
[2018-03-17] MEDS: DOCUSATE SODIUM 100 MG CAP PO SCH ×2 (08:50→17:35)
--- NOTE | 2018-03-17 10:10 | NUR ---
EFRAIN drain removed as per verbal order of Dr Ricks, pressure dressing applied. no output noted in efrain drain prior to removal
--- NOTE | 2018-03-17 12:20 | NUR ---
patient's daughter at bed side, educated patient and family regarding Urinary Leg bag how to use it, verbalized understanding, Also given suture removal Kit as per order of Dr Ricks to bring it during office visit, patient aware
[2018-03-17] MEDS: LEVOFLOXACIN 250MG/D5W 50ML 50 ML IV SCH (14:52)
[2018-03-17] MEDS: MORPHINE SULFATE 2 MG/ML SYR IV PRN (16:05)
[2018-03-17] MEDS: ACETAMINOPHEN/CODEINE 300MG - 30MG TAB PO PRN ×2 (17:46→23:41)
[2018-03-17] MEDS: SOD CHL 0.45%/POT CHL 20MEQ 1,000 ML IV SCH (17:50)
[2018-03-17] MEDS: DIPHENHYDRAMINE HCL INJ 50 MG/ML VIAL IM PRN (21:53)
[2018-03-18] VITALS (8 sets, daily range): BP systolic 122–175; BP diastolic 60–78
--- NOTE | 2018-03-18 05:38 | Diagnostic Imaging Report ---
EXAM: ABDOMEN-1VIEW (KUB), supine INDICATION: Ileus versus small bowel obstruction COMPARISON: KUB March 17, 2012 FINDINGS: LINES/TUBES: None BOWEL PATTERN: Nonspecific bowel gas pattern without evidence for obstruction. SOFT TISSUES: Multiple surgical clips throughout the abdomen. Skin trena left abdomen. LUNG BASES: Not included BONES: No acute findings. IMPRESSION: No evidence for obstruction. Decreased gaseous distention. Signed by: Dr. Magui June M.D. on 03/18/2018 5:34 AM
[2018-03-18 05:44] LABS: ANION GAP 13.3 mmol/L (8-16); CALCIUM 10.4 mg/dL (8.4-10.2); CREATININE, SERUM 0.92 mg/dL (0.57-1.11); MAGNESIUM 1.6 MG/DL (1.3-2.1); POTASSIUM 4.3 mmol/L (3.5-5.1)
[2018-03-18 06:10] LABS: FERRITIN 382.04 ng/mL (4.63-204.00)
[2018-03-18] MEDS: ACETAMINOPHEN/CODEINE 300MG - 30MG TAB PO PRN ×3 (06:34→15:32)
[2018-03-18 06:42] LABS: BASOPHILS % 0.2 % (0.0-1.0); EOSINOPHILS # (AUTO) 0.1 (0.0-0.4); EOSINOPHILS % 2.4 % (0.0-6.0); HEMATOCRIT 25.7 % (34.2-44.1); HEMOGLOBIN 8.4 g/dL (12.0-16.0); LYMPHOCYTES # (AUTO) 0.4 (1.0-3.2); LYMPHOCYTES % 7.5 % (18.0-39.1); MEAN CORPUSCULAR HEMOGLOBIN 31.2 pg (28-32); MEAN CORPUSCULAR HGB CONC 32.7 g/dL (31-35); MEAN CORPUSCULAR VOLUME 95.5 fL (81-99); MONOCYTES # (AUTO) 0.4 (0.2-0.8); MONOCYTES % 8.1 % (4.4-11.3); NEUTROPHILS # (AUTO) 4.1 (2.1-6.9); NEUTROPHILS % 81.4 % (38.7-80.0); PLATELET COUNT 134 x10e3/uL (140-360); RED BLOOD COUNT 2.69 x10e6/uL (3.6-5.1); RED CELL DISTRIBUTION WIDTH 13.2 % (11.7-14.4)
[2018-03-18 07:05] LABS: FOLATE 18.4 ng/mL (7.0-15.4)
[2018-03-18] MEDS: INSULIN REGULAR, HUMAN 100 UNIT/1 ML 3ML VIAL SQ SCH ×4 (07:30→21:00)
--- NOTE | 2018-03-18 08:17 | NUR ---
Received patient this morning, a/ox3, OOB and sitting on chair, stated passed gas but no BM yet, diet changed from ADA to clear liquids in the setting of questionable SBO/ileus and new orders to repeat KUB in the morning.
[2018-03-18] MEDS: DOCUSATE SODIUM 100 MG CAP PO SCH ×2 (08:47→16:49)
[2018-03-18] MEDS: FAMOTIDINE 20 MG/2 ML VIAL IV SCH ×2 (08:47→22:00)
[2018-03-18] MEDS: NIFEDIPINE CR 30 MG TAB PO SCH (08:47)
[2018-03-18] MEDS: ASCORBIC ACID 500 MG TAB PO SCH ×2 (08:48→16:49)
[2018-03-18] MEDS: DEXTROSE 5%/0.9% SOD CHL 1,000 ML IV SCH (09:02)
--- NOTE | 2018-03-18 09:28 | NUR ---
PT LIVES IN A HOUSE WITH HER IN [place] PT HAS A [facility] [facility] [employer] [facility] AND HAS GLUCOMETER PCP DR LAST ERICKSON DAUGHTER JUAN MANUEL GILLILAND LIVES IN [place] [phone] PT WILL BE GOING HOME WITH [facility] CATHETER (POSSIBLY THIS WEEKEND PER CLAUDIA, MELISSA) HOME HEALTH ORDERS FOR SKILLED NURSE, HOME PT/OT, LIANG MONITORING AND DC ON 03/24 AND REINSERT PRN CHOICE LETTER SIGNED FOR [facility] [phone], FAX: [phone] SPOKE WITH ANJANA AT [facility] AND NOTIFIED HER OF PENDING DC HOME THIS WEEKEND FAXED ORDERS AND CONFIRMATION REC'D COPY OF CHOICE LETTER TO PT IMM SIGNED BY PT AND ON CHART COPY OF IMM TO PT NURSE AWARE THAT DC ARRANGEMENTS ARE COMPLETED PT HAS MY CARD FOR QUESTIONS/CONCERNS
--- NOTE | 2018-03-18 13:48 | NUR ---
Patient OOB and ambulated with PT and c/o pains and medicated at this time
[2018-03-18] MEDS: MORPHINE SULFATE 2 MG/ML SYR IV PRN ×2 (13:49→22:24)
[2018-03-18] MEDS: LEVOFLOXACIN 250MG/D5W 50ML 50 ML IV SCH (14:53)
[2018-03-18] MEDS: FERROUS SULFATE 325 MG TAB PO SCH (16:49)
[2018-03-18] MEDS: ONDANSETRON HCL INJ 2 MG/ML VIAL IV PRN (22:20)
--- NOTE | 2018-03-18 22:54 | NUR ---
PT C/O IRRITATION/ITCHING TO BOTH EYES.NOTED REDNESS AND SWELLING TO BOTH EYES,LEFT EYE MORE THAN THE RIGHT EYE.PT ASLO C/O NAUSEA AND STATED THAT THE ZOFRAN ONLY HELP A LITTLE.PT REQUESTING SCOPOLAMINE PATCH.PT CONCERNED THAT THE ITCHING COULD BE A REACTION TO THE ANTIBIOTIC THAT SHE IS RECEIVING(LEVAQUIN),V/S WNL.RESPIRATIONS EVEN/NON LABORED.DAUGHTERS AND SON AT BEDSIDE.CALL PLACED TO CELY SIMS [employer] FIELD TECHNICIAN ANSWERED THE CALL.NOTIFIED ABOUT PT COMPLAINTS.CELY TORRES ASKED IF PT HAS A TEMP AND WHAT PTS WBC LEVEL IS,NOTIFIED THAT PTS TEMP IS 97.5, AND WBC LEVEL FROM THIS AM IS 5.04. CELY TORRES ORDERED TO (1) DC THE LEVAQUIN,(2) NEOSPORIN EYE DROPS 2 DROPS TO BOTH EYE TID,(3) PHENERGAN 12.5MG IV Q6H PRN FOR NAUSEA/VOMITING.
[2018-03-19] VITALS (8 sets, daily range): BP systolic 113–155; BP diastolic 56–72
[2018-03-19] MEDS: MORPHINE SULFATE 2 MG/ML SYR IV PRN (03:49)
[2018-03-19] MEDS: PROMETHAZINE 12.5MG/ NACL 0.9% 12.5 MG/50 ML BAG IV PRN (03:55)
[2018-03-19] MEDS: DEXTROSE 5%/0.9% SOD CHL 1,000 ML IV SCH ×2 (04:15→05:42)
[2018-03-19 05:23] LABS: BASOPHILS % 0.2 % (0.0-1.0); EOSINOPHILS # (AUTO) 0.2 (0.0-0.4); EOSINOPHILS % 4.2 % (0.0-6.0); HEMATOCRIT 26.7 % (34.2-44.1); HEMOGLOBIN 8.9 g/dL (12.0-16.0); LYMPHOCYTES # (AUTO) 0.4 (1.0-3.2); LYMPHOCYTES % 7.8 % (18.0-39.1); MEAN CORPUSCULAR HEMOGLOBIN 31.4 pg (28-32); MEAN CORPUSCULAR HGB CONC 33.3 g/dL (31-35); MEAN CORPUSCULAR VOLUME 94.3 fL (81-99); MONOCYTES # (AUTO) 0.4 (0.2-0.8); MONOCYTES % 8.4 % (4.4-11.3); NEUTROPHILS # (AUTO) 3.6 (2.1-6.9); PLATELET COUNT 147 x10e3/uL (140-360); RED BLOOD COUNT 2.83 x10e6/uL (3.6-5.1); RED CELL DISTRIBUTION WIDTH 12.9 % (11.7-14.4)
[2018-03-19 05:37] LABS: BLOOD UREA NITROGEN 14 mg/dL (7-26); BUN/CREATININE RATIO 16 (6-25); CALCIUM 10.3 mg/dL (8.4-10.2); CARBON DIOXIDE 20 mmol/L (22-29); CHLORIDE 110 mmol/L (98-107); CREATININE, SERUM 0.89 mg/dL (0.57-1.11); EST GLOMERULAR FILTRATION RATE > 60 ML/MIN (60-); GLUCOSE 125 mg/dL (74-118); MAGNESIUM 1.5 MG/DL (1.3-2.1); SODIUM 137 mmol/L (136-145)
[2018-03-19] MEDS: ONDANSETRON HCL INJ 2 MG/ML VIAL IV PRN ×2 (05:42→20:00)
--- NOTE | 2018-03-19 06:08 | Diagnostic Imaging Report ---
EXAM: ABDOMEN-1VIEW (KUB), supine INDICATION: Ileus COMPARISON: AP view of the abdomen March 17, 2018 FINDINGS: LINES/TUBES: None BOWEL PATTERN: Nonspecific bowel gas pattern without evidence for obstruction. Suspected small bowel ileus. SOFT TISSUES: Multiple surgical clips across the abdomen. LUNG BASES: Bibasilar atelectasis BONES: No acute findings. IMPRESSION: Nonspecific bowel gas pattern without evidence for obstruction. Suspected mild persistent ileus. Signed by: Dr. Magui June M.D. on 03/19/2018 6:05 AM
[2018-03-19] MEDS: ACETAMINOPHEN/CODEINE 300MG - 30MG TAB PO PRN ×5 (06:37→22:38)
[2018-03-19] MEDS: BISACODYL 10 MG SUPP PR PRN (07:08)
--- NOTE | 2018-03-19 07:10 | NUR ---
REPORT GIVEN TO ONCOMING NURSE.WALKING ROUNDS MADE.
--- NOTE | 2018-03-19 08:08 | NUR ---
Received patient and alert and orientedx3, no resp distress, denies any major pains, KUB with persistent suspected ileus, patient states has had this history before, still passing gas but no BM. Suppository given this morning, no vomiting reported, will monitor as call light within reach
[2018-03-19] MEDS: FERROUS SULFATE 325 MG TAB PO SCH ×2 (08:41→16:52)
[2018-03-19] MEDS: FAMOTIDINE 20 MG/2 ML VIAL IV SCH ×2 (08:42→20:34)
[2018-03-19] MEDS: NEOMYCIN/POLYMYX/GRAM (OPTH) 10 ML BTL OP SCH ×3 (08:42→20:35)
[2018-03-19] MEDS: INSULIN REGULAR, HUMAN 100 UNIT/1 ML 3ML VIAL SQ SCH ×4 (09:32→20:23)
[2018-03-19] MEDS: NIFEDIPINE CR 30 MG TAB PO SCH (09:35)
[2018-03-19] MEDS: DOCUSATE SODIUM 100 MG CAP PO SCH ×2 (09:35→16:52)
[2018-03-19] MEDS: ASCORBIC ACID 500 MG TAB PO SCH ×2 (09:35→16:52)
--- NOTE | 2018-03-19 09:40 | NUR ---
Patient alert and responsive, OOB and ambulating with PT at this time, will monitor
--- NOTE | 2018-03-19 11:54 | NUR ---
Rounds by attending urology and orders from Dr. Fraesr to start patient on regular diet and see how she will do. Will monitor
--- NOTE | 2018-03-19 16:55 | NUR ---
Patient OOB and ambulated with staff again on [address], sat up on w/c and then assisted to bathroom but no BM, gas only, BS positive RLQ and rest diminished. Tolerated meals and no N/V, incision intact with stable, will monitor
--- NOTE | 2018-03-19 22:30 | NUR ---
ASSISTED PT TO AMBULATE IN THE HALLWAY,PT AMBULATED IN THE HALLWAY WITH WALKER.NO S/S OF DISTRESS NOTED.
[2018-03-19] MEDS ORDERED: NEOMYCIN/POLYMYX/GRAM (OPTH) 10 ML BTL OP SCH (23:00)
--- NOTE | 2018-03-19 23:10 | NUR ---
PT'S IV TO RIGHT HAND NOTED LEAKING,CATH TIP INTACT UPON REMOVAL.DRESSING APPLIED.NEW 20G IV STARTED TO RIGHT FA.
[2018-03-20] VITALS (8 sets, daily range): BP systolic 124–148; BP diastolic 57–77
[2018-03-20] MEDS: DEXTROSE 5%/0.9% SOD CHL 1,000 ML IV SCH ×3 (00:15→20:15)
[2018-03-20 03:01] LABS: BASOPHILS % 0.4 % (0.0-1.0); EOSINOPHILS # (AUTO) 0.3 (0.0-0.4); EOSINOPHILS % 6.4 % (0.0-6.0); HEMATOCRIT 26.2 % (34.2-44.1); HEMOGLOBIN 8.5 g/dL (12.0-16.0); LYMPHOCYTES # (AUTO) 0.6 (1.0-3.2); LYMPHOCYTES % 12.8 % (18.0-39.1); MEAN CORPUSCULAR HGB CONC 32.4 g/dL (31-35); MEAN CORPUSCULAR VOLUME 95.6 fL (81-99); MONOCYTES # (AUTO) 0.5 (0.2-0.8); MONOCYTES % 10.1 % (4.4-11.3); NEUTROPHILS # (AUTO) 3.2 (2.1-6.9); NEUTROPHILS % 69.6 % (38.7-80.0); PLATELET COUNT 158 x10e3/uL (140-360); RED BLOOD COUNT 2.74 x10e6/uL (3.6-5.1); RED CELL DISTRIBUTION WIDTH 13.2 % (11.7-14.4)
[2018-03-20 03:16] LABS: ANION GAP 11.8 mmol/L (8-16); BLOOD UREA NITROGEN 12 mg/dL (7-26); BUN/CREATININE RATIO 13 (6-25); CALCIUM 10.3 mg/dL (8.4-10.2); CARBON DIOXIDE 19 mmol/L (22-29); CHLORIDE 110 mmol/L (98-107); CREATININE, SERUM 0.89 mg/dL (0.57-1.11); EST GLOMERULAR FILTRATION RATE > 60 ML/MIN (60-); GLUCOSE 102 mg/dL (74-118); MAGNESIUM 1.6 MG/DL (1.3-2.1); POTASSIUM 3.8 mmol/L (3.5-5.1); SODIUM 137 mmol/L (136-145)
--- NOTE | 2018-03-20 03:49 | NUR ---
BLOOD DRAWN FOR LABS,PT TOLERATED WELL.CALL LIGHT WITHIN EASY REACH. Addendum: 03/20/18 at 8742 by Penny Courtney RN TIME FOR ABOVE NOTE IS [id number]
[2018-03-20] MEDS: BISACODYL 10 MG SUPP PR PRN (06:13)
--- NOTE | 2018-03-20 06:14 | NUR ---
PT RESTING IN BED WITH NO S/S OF DISTRESS.PT STATED THAT SHES PASSING GAS,BUT NO BM,PRN DULCOLAX SUPP GIVEN PER JUL.BED IN LOWEST/LOCKED POSITION.INSTRUCTED PT TO CALL FOR ASSISTANCE NEEDED BY USING CALL LIGHT.CALL LIGHT WITHIN EASY REACH.
--- NOTE | 2018-03-20 06:28 | Diagnostic Imaging Report ---
EXAM: ABDOMEN-1VIEW (KUB), INDICATION: ileus COMPARISON: KUB March 19, 2018 FINDINGS: LINES/TUBES: None BOWEL PATTERN: Stable mild gaseous distention of bowel loops SOFT TISSUES: Multiple surgical clips across the abdomen LUNG BASES: Bibasilar atelectasis BONES: No acute findings. IMPRESSION: Stable ileus Signed by: Dr. Magui June M.D. on 03/20/2018 6:25 AM
--- NOTE | 2018-03-20 07:00 | NUR ---
Handoff report and walking rounds with outgoing shift production associate nurse. Pt updated on POC. Pt c/o nausea. Will give PRN medication. Call light in reach.
[2018-03-20] MEDS: ONDANSETRON HCL INJ 2 MG/ML VIAL IV PRN ×3 (07:27→17:43)
[2018-03-20] MEDS: INSULIN REGULAR, HUMAN 100 UNIT/1 ML 3ML VIAL SQ SCH ×4 (07:30→21:02)
[2018-03-20] MEDS: FERROUS SULFATE 325 MG TAB PO SCH ×2 (08:30→17:13)
[2018-03-20] MEDS: NIFEDIPINE CR 30 MG TAB PO SCH (08:30)
[2018-03-20] MEDS: ASCORBIC ACID 500 MG TAB PO SCH ×2 (08:30→17:13)
[2018-03-20] MEDS: FAMOTIDINE 20 MG/2 ML VIAL IV SCH ×2 (08:30→21:00)
[2018-03-20] MEDS: DOCUSATE SODIUM 100 MG CAP PO SCH ×2 (08:30→17:13)
[2018-03-20] MEDS: NEOMYCIN/POLYMYX/GRAM (OPTH) 10 ML BTL OP SCH ×3 (08:30→21:00)
[2018-03-20] MEDS: MORPHINE SULFATE 2 MG/ML SYR IV PRN ×2 (11:39→17:14)
[2018-03-20] MEDS: PROMETHAZINE 12.5MG/ NACL 0.9% 12.5 MG/50 ML BAG IV PRN (19:35)
--- NOTE | 2018-03-20 19:35 | NUR ---
RECEIVED PT RESTING IN BED WITH HOB ELEVATED.RESPIRATIONS EVEN/NON LABORED.PT C/O NAUSEA,REQUESTED SOMETHING FOR NAUSEA,PRN PHENERGAN GIVEN PER MAR.FAMILY MEMBERS AT BEDSIDE.BED IN LOWEST/LOCKED POSITION.CALL LIGHT WITHIN EASY REACH.
[2018-03-21] VITALS (7 sets, daily range): BP systolic 125–164; BP diastolic 59–80
[2018-03-21 03:36] LABS: BASOPHILS % 0.2 % (0.0-1.0); EOSINOPHILS # (AUTO) 0.4 (0.0-0.4); HEMATOCRIT 26.4 % (34.2-44.1); HEMOGLOBIN 8.7 g/dL (12.0-16.0); LYMPHOCYTES # (AUTO) 0.7 (1.0-3.2); LYMPHOCYTES % 15.6 % (18.0-39.1); MEAN CORPUSCULAR HEMOGLOBIN 31.1 pg (28-32); MEAN CORPUSCULAR VOLUME 94.3 fL (81-99); MONOCYTES # (AUTO) 0.5 (0.2-0.8); MONOCYTES % 10.6 % (4.4-11.3); NEUTROPHILS # (AUTO) 2.8 (2.1-6.9); NEUTROPHILS % 64.5 % (38.7-80.0); PLATELET COUNT 167 x10e3/uL (140-360); RED CELL DISTRIBUTION WIDTH 13.2 % (11.7-14.4)
[2018-03-21 03:53] LABS: ANION GAP 11.6 mmol/L (8-16); BLOOD UREA NITROGEN 8 mg/dL (7-26); BUN/CREATININE RATIO 10 (6-25); CALCIUM 9.9 mg/dL (8.4-10.2); CARBON DIOXIDE 20 mmol/L (22-29); CHLORIDE 111 mmol/L (98-107); CREATININE, SERUM 0.83 mg/dL (0.57-1.11); EST GLOMERULAR FILTRATION RATE > 60 ML/MIN (60-); GLUCOSE 81 mg/dL (74-118); MAGNESIUM 1.5 MG/DL (1.3-2.1); POTASSIUM 3.6 mmol/L (3.5-5.1); SODIUM 139 mmol/L (136-145)
[2018-03-21] MEDS: DEXTROSE 5%/0.9% SOD CHL 1,000 ML IV SCH ×2 (06:15→16:15)
[2018-03-21] MEDS: ACETAMINOPHEN/CODEINE 300MG - 30MG TAB PO PRN ×2 (06:28→14:21)
--- NOTE | 2018-03-21 06:51 | Diagnostic Imaging Report ---
EXAM: ABDOMEN-1VIEW (KUB), INDICATION: Ileus COMPARISON: AP view of the abdomen March 20, 2018 FINDINGS: LINES/TUBES: None BOWEL PATTERN: Limited view, decreased bowel distention of small bowel loops. SOFT TISSUES: Surgical clips across the abdomen. LUNG BASES: Left lower lobe atelectasis. BONES: No acute findings. IMPRESSION: Improving ileus Signed by: Dr. Magui June M.D. on 03/21/2018 6:48 AM
--- NOTE | 2018-03-21 07:11 | NUR ---
REPORT GIVEN TO ONCOMING NURSE.WALKING ROUNDS MADE.PT RESTING IN BED WITH NO S/S OF DISTRESS.
[2018-03-21] MEDS: INSULIN REGULAR, HUMAN 100 UNIT/1 ML 3ML VIAL SQ SCH ×4 (07:30→21:40)
--- NOTE | 2018-03-21 08:12 | NUR ---
MD Madeline PALUMBO INTO SEE PT, DISCUSSED POC
[2018-03-21] MEDS: FERROUS SULFATE 325 MG TAB PO SCH ×2 (09:00→17:51)
[2018-03-21] MEDS: DOCUSATE SODIUM 100 MG CAP PO SCH ×2 (10:00→17:51)
[2018-03-21] MEDS: NEOMYCIN/POLYMYX/GRAM (OPTH) 10 ML BTL OP SCH ×3 (10:00→21:39)
[2018-03-21] MEDS: NIFEDIPINE CR 30 MG TAB PO SCH (10:00)
[2018-03-21] MEDS: ASCORBIC ACID 500 MG TAB PO SCH ×2 (10:00→17:51)
[2018-03-21] MEDS: FAMOTIDINE 20 MG/2 ML VIAL IV SCH ×2 (10:00→21:39)
--- NOTE | 2018-03-21 10:00 | NUR ---
AZUL ARVIZU'D PER MD ORDER, WITH STANDBY ASSIST AND USE OF WALKER, PT OOB TO CHAIR, CALL LIGHT WITHIN REACH
--- NOTE | 2018-03-21 11:45 | NUR ---
AMBULATED IN HALLWAY WITH PHYSICAL THERAPIST AND USE OF WALKER, NOW SITTING IN BS CHAIR, PHYSICAL THERAPIST REPORTED THAT PT VOIDED 2 TIMES, SPOKE WITH PT, EDUCATED HER ON NEED TO BLADDER SCAN HER AFTER HER NEXT VOID, PT VERBALIZED UNDERSTANDING, CALL LIGHT WITHIN REACH, FAMILY AT [facility]
[2018-03-21] MEDS ORDERED: TYLENOL WITH C1 EACH PO (13:32)
[2018-03-21] MEDS ORDERED: COLACE100 MG PO (13:33)
--- NOTE | 2018-03-21 14:08 | NUR ---
PT VOIDED, STANDBY ASSIST BACK TO BED, BLADDER SCAN AT 23ML, CALL LIGHT WITHIN REACH
--- NOTE | 2018-03-21 16:14 | NUR ---
Nutrition Screen Note RD Recommendation for Physician: -Continue ADA diet as medically feasible Plan of Care: RD following, monitor for tolerance and adequacy Nutrition reason for involvement: Follow up Primary Diagnose(s): atrophic left kidney PMH: none recorded in chart Ht: 65in Wt: 155.04lb admit wt, 162lb current wt BMI: 25.8kg/m2 IBW: 125lb RD Assessment: (03/15) Chart reviewed. Labs and meds reviewed. Pt left her room for procedure. Per RN, pt had average PO intake ~50-100%. LBM -03/20. No complain of GI distress per RN. Consult RD if her nutrition status declined. Will continue to monitor and follow. (03/15) Chart reviewed. Labs and meds reviewed. 72yo F, post-op day 2 (nephrectomy). Pt is a poor historian; daughter presents on bedside to provide hx. 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 Pt usually eats very small portioned meals 2-3x a day at home. Pt lives with spouse at home. No recent weight loss noted, per daughter. No complain of N/V/D/C. No reason stated for RD consult. Will continue to monitor and follow. Current Diet: ADA diet Malnutrition Evaluation (03/15) The patient does not meet criteria for a specified degree of malnutrition at this time. Will re-evaluate at follow-up as appropriate. Diet Education Needs Assessment: Diet education not indicated. Nutrition Care Level: low Signed: Joanna See, MS, RD, LD
--- NOTE | 2018-03-21 16:19 | NUR ---
AMBULATING IN HALLWAY WITH USE OF WALKER , STEADY GAIT, FAMILY AT SIDE
--- NOTE | 2018-03-21 17:51 | NUR ---
SITTING IN BS CHAIR, CALL LIGHT WITHIN REACH
[2018-03-21] MEDS: ONDANSETRON HCL INJ 2 MG/ML VIAL IV PRN (18:32)
--- NOTE | 2018-03-21 18:32 | NUR ---
PT MEDICATED FOR NAUSEA PER MD ORDER, PT STATES WHEN SHE GOT UP TO BATHROOM TO VOID, SHE FELT NAUSEATED, REFUSED DINNER DUE TO FAMILY BRINGING IN OUTSIDE FOOD FOR HER
[2018-03-22] VITALS: BP 142/67
[2018-03-22 00:15] VITALS: BP 164/74
[2018-03-22] MEDS: DEXTROSE 5%/0.9% SOD CHL 1,000 ML IV SCH (01:37)
[2018-03-22 04:00] VITALS: BP 170/74
[2018-03-22 04:54] LABS: BASOPHILS % 0.4 % (0.0-1.0); EOSINOPHILS # (AUTO) 0.3 (0.0-0.4); EOSINOPHILS % 6.9 % (0.0-6.0); HEMATOCRIT 26.3 % (34.2-44.1); HEMOGLOBIN 8.6 g/dL (12.0-16.0); LYMPHOCYTES # (AUTO) 0.6 (1.0-3.2); LYMPHOCYTES % 13.8 % (18.0-39.1); MEAN CORPUSCULAR HGB CONC 32.7 g/dL (31-35); MEAN CORPUSCULAR VOLUME 94.9 fL (81-99); MONOCYTES # (AUTO) 0.4 (0.2-0.8); MONOCYTES % 8.2 % (4.4-11.3); NEUTROPHILS # (AUTO) 3.1 (2.1-6.9); NEUTROPHILS % 69.4 % (38.7-80.0); PLATELET COUNT 166 x10e3/uL (140-360); RED BLOOD COUNT 2.77 x10e6/uL (3.6-5.1); RED CELL DISTRIBUTION WIDTH 13.3 % (11.7-14.4)
[2018-03-22 05:17] LABS: ANION GAP 10.3 mmol/L (8-16); BLOOD UREA NITROGEN 7 mg/dL (7-26); BUN/CREATININE RATIO 9 (6-25); CARBON DIOXIDE 20 mmol/L (22-29); CHLORIDE 109 mmol/L (98-107); CREATININE, SERUM 0.81 mg/dL (0.57-1.11); EST GLOMERULAR FILTRATION RATE > 60 ML/MIN (60-); GLUCOSE 98 mg/dL (74-118); POTASSIUM 3.3 mmol/L (3.5-5.1); SODIUM 136 mmol/L (136-145)
[2018-03-22] MEDS ORDERED: NIFEDIPINE ER30 M1 PO (05:37)
[2018-03-22] MEDS ORDERED: POTASSIUM CHLORIDE 20 MEQ TAB CR PO STA (05:45)
--- NOTE | 2018-03-22 06:08 | Diagnostic Imaging Report ---
EXAM: ABDOMEN-1VIEW (KUB), DATE: 03/22/2018 3:00 AM INDICATION: Ileus COMPARISON: KUB 03/21/2018 FINDINGS: LINES/TUBES: None BOWEL PATTERN: Nondilated air-filled colon. No significantly distended air filled loops of small bowel. SOFT TISSUES: Numerous surgical clips project across the abdomen. No abnormal calcifications. No mass effect. LUNG BASES: Grossly clear. BONES: No acute findings. IMPRESSION: Nonobstructive bowel gas pattern. Signed by: DR. Chinmay Zambrano MD on 03/22/2018 6:04 AM
[2018-03-22] MEDS: INSULIN REGULAR, HUMAN 100 UNIT/1 ML 3ML VIAL SQ SCH ×2 (07:30→11:30)
[2018-03-22 08:45] VITALS: BP 183/79
[2018-03-22] MEDS ORDERED: AMLODIPINE BESYLATE 5 MG TAB PO SCH (09:00)
[2018-03-22] MEDS ORDERED: LEVOTHYROXINE SODIUM 100 MCG TAB PO SCH (09:00)
[2018-03-22] MEDS ORDERED: LOSARTAN POTASSIUM 100 MG TAB PO SCH (09:00)
[2018-03-22] MEDS ORDERED: SERTRALINE HCL 50 MG TAB PO SCH (09:00)
[2018-03-22] MEDS ORDERED: NIFEDIPINE CR 30 MG TAB PO SCH (09:00)
[2018-03-22] MEDS ORDERED: NON-FORMULARY MEDICATION (Atorvastatin Calcium (Lipitor) 40 MG) PO SCH (09:00)
[2018-03-22] MEDS: FERROUS SULFATE 325 MG TAB PO SCH (10:00)
[2018-03-22] MEDS: FAMOTIDINE 20 MG/2 ML VIAL IV SCH (10:00)
[2018-03-22] MEDS: ASCORBIC ACID 500 MG TAB PO SCH (10:00)
[2018-03-22] MEDS: DOCUSATE SODIUM 100 MG CAP PO SCH (10:00)
[2018-03-22] MEDS: NEOMYCIN/POLYMYX/GRAM (OPTH) 10 ML BTL OP SCH (10:00)
[2018-03-22 10:36] VITALS: BP 178/82
--- NOTE | 2018-03-22 11:58 | NUR ---
PT DISCHARGED HOME TODAY PT TO CALL [facility] WHEN SHE GETS HOME AND THEY WILL ADMIT HER ON 03/23 IMM SIGNED AND ON CHART COPY TO PT PT HAS MY CARD FOR QUESTIONS/CONCERNS
[2018-03-22 13:22] VITALS: BP 173/83
--- NOTE | 2018-03-22 13:34 | NUR ---
PT WHEELED OFF UNIT VIA WC FOR DISCHARGE, NO CHANGE IN CONDITION
--- NOTE | 2018-03-22 16:52 | Discharge Summary ---
ADMISSION DIAGNOSES 1. Atrophic left kidney, status post nephrectomy. 2. Hypertension with chronic kidney disease 3. 3. Type 2 diabetes with chronic kidney disease 3. 4. Hypothyroidism. DISCHARGE DIAGNOSES 1. Atrophic left kidney, status post nephrectomy. 2. Hypertension with chronic kidney disease 3. 3. Type 2 diabetes with chronic kidney disease 3. 4. Hypothyroidism. 5. Hyperlipidemia. 6. Osteoporosis. 7. Neuropathy. 8. Ileus. 9. Anemia. 10. Ruled out gastrointestinal bleed. 11. Hypokalemia. 12. Hypercalcemia. HISTORY: The patient has a history of type 2 diabetes, hypertension, chronic kidney disease 3, cervical cancer, hypothyroidism, old stroke. PAST SURGICAL HISTORY: Hysterectomy, cholecystectomy, renal stent. FAMILY HISTORY: Hypertension and type 2 diabetes. SOCIAL HISTORY: The patient denies tobacco, alcohol and illicit drug use. HOSPITAL COURSE: A 72-year-old female with stent in the left kidney, found to have an atrophic left kidney. Per urology, the patient was admitted and had an elective left nephrectomy. The patient given IV Levaquin and IV fluids after surgery. Chest x-ray was negative. KUB on 03/17 showed an ileus which took many days to improve. The patient is eating better and having bowel movements at the time of discharge. The patient will follow up with urology in 2 weeks. She will discharge home with family. The patient and son understand discharge instructions and agreed to plan. Vital signs stable. The patient afebrile. Dictated by: Brenda Snell NP CHRISTIAN BYERS MD Job#: [id number]
[2018-03-22] MEDS ORDERED: ATORVASTATIN 40 MG TAB PO SCH (21:00)
--- NOTE | 2018-04-24 23:30 | Operative Report ---
DATE OF PROCEDURE: March 14, 2018 PREOPERATIVE DIAGNOSES 1. Severely atrophic left kidney. 2. Left indwelling ureteral stent. POSTOPERATIVE DIAGNOSES 1. Severely atrophic left kidney. 2. Left indwelling ureteral stent. OPERATIONS PERFORMED 1. Complicated left nephrectomy. 2. Cystourethroscopy with removal of indwelling ureteral stents. DIABETOLOGIST: Dr. Chang Ricks COMPLICATIONS: None. CLINICAL SUMMARY: Brenda Rahman is a 72-year-old woman with severely atrophic left kidney caused by left ureteral stricture. The patient has been managed with indwelling ureteral stent that has been changed on a regular basis for a very long time. I have been recommending the patient to undergo nephrectomy, so that she does not have to undergo an anesthetic on a regular basis to change the stent. Also, in light of the fact that her kidney function is so severely reduced, his kidney is not helping her in any way and was actually more detrimental to her health. The patient and her family carefully weighed the risks, benefits, and alternatives and elected to proceed with surgery as planned. She is aware of the risks of bleeding, infection, injury to adjacent structures, need for additional procedures, and elected to proceed. OPERATIVE PROCEDURE IN DETAIL: Informed consent was verified. Brenda Rahman was properly identified, taken to the operating room, placed on the operating table in the supine position. Anesthesia was uneventfully begun. The patient was then placed in a frog-leg position with all pressure points carefully well padded. The flexible cystoscope was inserted under direct vision. The bladder was unremarkable. The stent was emerging from the left ureteral orifice. It was grasped, pulled out, and discarded in its entirety. Frey catheter was then placed. The patient was then carefully and gently repositioned in the flank position with all pressure points very carefully well padded. Her abdomen and back and chest were prepared and draped in usual sterile fashion. A flank incision was made, carried through all layers of the abdominal and chest wall. We carefully dissected out and isolated the kidney. Kidney was small. Once we fully isolated the kidney, the ureter was ligated and divided. We then doubly ligated and divided the artery, then doubly ligated and divided the vein, and removed the kidney from the field. Copious irrigation was performed. The patient's incision was then approximated in layers utilizing heavy Vicryl suture in interrupted figure-of-8 fashion. Skin was approximated with skin trena. Patient was then uneventfully reversed from anesthesia and taken to recovery room in stable condition. There were no complications to the procedure. She tolerated the procedure well. Will proceed with routine postoperative care and of course, ongoing urological followup. Job#: [id number] CQ cc:LAST ERICKSON MD
== END 2018-03-22 13:10 | disposition home or self-care (01) | DRG 660 ==
LOC: OR 10:51 → PACU V 14:58 → ICU 17:35 → MED/SURG 03-15 18:07
PROVIDERS: ADMIT Internal Medicine; ATTEND Internal Medicine
PROC: 0TP98DZ Removal of Intraluminal Device from Ureter, Via Natural or Artificial Opening Endoscopic (ICD-10-PCS; 2018-03-14)
PROC: 0TT10ZZ Resection of Left Kidney, Open Approach (ICD-10-PCS; principal; 2018-03-14 13:00)
DX: N26.1 Atrophy of kidney (terminal) (principal); K56.7 Ileus, unspecified; E87.1 Hypo-osmolality and hyponatremia; I12.9 Hypertensive chronic kidney disease with stage 1 through stage 4 chronic kidney disease, or unspecified chronic kidney disease; E11.22 Type 2 diabetes mellitus with diabetic chronic kidney disease; N18.3 Chronic kidney disease, stage 3 (moderate); Z79.4 Long term (current) use of insulin; E03.9 Hypothyroidism, unspecified; M81.0 Age-related osteoporosis without current pathological fracture; E78.5 Hyperlipidemia, unspecified; G62.9 Polyneuropathy, unspecified; E87.6 Hypokalemia; E83.52 Hypercalcemia; R31.0 Gross hematuria; R33.9 Retention of urine, unspecified; D64.9 Anemia, unspecified; Z86.73 Personal history of transient ischemic attack (TIA), and cerebral infarction without residual deficits
CPT/HCPCS: 36415; 71045; 71046; 74018; 80048; 80053; 82306; 82607; 82728; 82746; 82948; 83519; 83540; 83735; 84466; 85025; 86850; 86900; 86920; 88307; 88342; 93005; 96361; 97139; J0360; J1100; J1200; J1956; J2001; J2150; J2250; J2270; J2405; J2550; J2765; J7042; J7050

== ENCOUNTER → 2018-10-17 | Outpatient (CLI) | payer BC, MEDICARE ==
[~2018-10-17] MED LIST changes: +COLACE100 MG PO; +NIFEDIPINE ER30 M1 PO; +TYLENOL WITH C1 EACH PO
--- NOTE | 2018-10-17 13:07 | Diagnostic Imaging Report ---
EXAM: Renal Ultrasound INDICATION: Gross hematuria, UTI COMPARISON: None TECHNIQUE: Transverse and longitudinal images of the right kidney, left nephrectomy bed, and bladder were obtained. FINDINGS: Right Kidney: Length: Measures 11.9 x 5.2 x 5.9 cm Appearance: Increased echogenicity. Collecting system: Mild right hydronephrosis Stones: None Cyst/Mass: No evidence of solid mass. There is a right upper pole simple appearing cyst, measuring up to 1.6 cm. Left Kidney: Status post left nephrectomy. Bladder: Unremarkable in appearance. Right ureteral jet is present. Bladder volume is 80.7 cc. IMPRESSION: Mild right hydronephrosis. Increased right renal echogenicity, may reflect medical renal disease. Status post left nephrectomy. Signed by: Dr. Manny Rodríguez MD on 10/17/2018 1:04 PM
== END ==
LOC: US 10:38
PROVIDERS: ATTEND Urology
DX: K31.0 Acute dilatation of stomach (principal); N39.0 Urinary tract infection, site not specified
CPT/HCPCS: 76770

== ENCOUNTER → 2019-11-24 | Outpatient (CLI) | payer MEDICARE, BC ==
--- NOTE | 2019-11-24 13:13 | Diagnostic Imaging Report ---
Renal ultrasound Comparison: 06/12/2019 Clinical History: CKD Technique: Sonographic evaluation of the kidneys was performed. Multiple images were submitted for interpretation, using a low-frequency curved transducer. Right kidney: The kidney measures 11.6 x 4.7 x 5.4 cm. The cortical echogenicity is within normal limits. The cortex measures 1.7 cm. There is no evidence of a focal mass. There is no evidence of hydronephrosis. There is no evidence of a shadowing stone. There is sonographic evidence of 2 Renal cysts. There is 1 cyst inferiorly that measures 1.3 x 0.9 x 1.1 cm and shows no septations, increased through transmission and has an echogenic focus on the wall which could be a calcified focus. No change. There is another simple cyst in the upper cortex that measures 1.0 cm. This was not reported previously. There is no evidence of a perinephric fluid collection. Flow is visualized to the right kidney. Left kidney: The patient is status post left nephrectomy. Survey images of the bladder demonstrate an empty bladder. Right ureteral jet is seen. Impression: No significant abnormality of the right kidney. Stable right inferior simple cyst. Another simple cyst in the upper to midpole that was not seen previously. Signed by: Mike Johnson MD on 11/24/2019 1:10 PM
== END ==
LOC: US 11:21
PROVIDERS: ATTEND Urology
DX: N18.9 Chronic kidney disease, unspecified (principal)
CPT/HCPCS: 76770

== ENCOUNTER → 2022-06-25 | Day surgery (SDC) | payer MEDICARE, BC ==
[2022-06-23 15:58] LABS: BASOPHILS % 0.2 % (0.0-1.0); EOSINOPHILS # (AUTO) 0.2 (0.0-0.4); EOSINOPHILS % 4.6 % (0.0-6.0); HEMATOCRIT 35.9 % (34.2-44.1); HEMOGLOBIN 10.4 g/dL (12.0-16.0); LYMPHOCYTES # (AUTO) 1.1 (1.0-3.2); LYMPHOCYTES % 21.8 % (18.0-39.1); MEAN CORPUSCULAR HEMOGLOBIN 30.1 pg (28-32); MEAN CORPUSCULAR VOLUME 104.1 fL (81-99); MONOCYTES # (AUTO) 0.4 (0.2-0.8); MONOCYTES % 7.9 % (4.4-11.3); NEUTROPHILS # (AUTO) 3.3 (2.1-6.9); NEUTROPHILS % 65.3 % (38.7-80.0); PLATELET COUNT 160 x10e3/uL (140-360); RED BLOOD COUNT 3.45 x10e6/uL (3.6-5.1); RED CELL DISTRIBUTION WIDTH 12.7 % (11.7-14.4)
[~2022-06-25] MED LIST changes: +DEXTROSE 5% 250ML 250 ML IV ONE; +LIDOCAINE HCL 2% LOCAL INJ 5 ML SDV VIAL INJ ONE; +MIRTAZAPINE15 MG PO; +PROPOFOL IV EMULSION 10 MG/ML 20 ML VIAL ONE
[2022-06-25 09:24] VITALS: BP 147/82
== END | disposition home or self-care (01) ==
LOC: OR 06:47
PROVIDERS: ATTEND Internal Medicine Gastroenterology
DX: Z12.11 Encounter for screening for malignant neoplasm of colon (principal); K64.8 Other hemorrhoids; Z71.3 Dietary counseling and surveillance; I10 Essential (primary) hypertension; E11.9 Type 2 diabetes mellitus without complications; Z88.0 Allergy status to penicillin; Z01.810 Encounter for preprocedural cardiovascular examination; Z01.812 Encounter for preprocedural laboratory examination; Z79.82 Long term (current) use of aspirin; Z79.899 Other long term (current) drug therapy; Z68.25 Body mass index [BMI] 25.0-25.9, adult; Z86.73 Personal history of transient ischemic attack (TIA), and cerebral infarction without residual deficits
CPT/HCPCS: 36415 ×2; 82948; 85025; 93005; G0121; J2001; J2704; J7070; 45378

== ENCOUNTER 2024-06-26 18:11 | Emergency (ER) | payer MEDICARE, BC ==
[~2024-06-26] VITALS: Ht 165.1 cm; Wt 65.8 kg
[~2024-06-26 18:11] MED LIST changes: -DEXTROSE 5% 250ML 250 ML IV ONE; -LIDOCAINE HCL 2% LOCAL INJ 5 ML SDV VIAL INJ ONE; -PROPOFOL IV EMULSION 10 MG/ML 20 ML VIAL ONE
[2024-06-26 19:23] LABS: BASOPHILS % 0.4 % (0.0-1.0); EOSINOPHILS # (AUTO) 0.2 (0.0-0.4); EOSINOPHILS % 3.7 % (0.0-6.0); LYMPHOCYTES # (AUTO) 1.3 (1.0-3.2); LYMPHOCYTES % 23.6 % (18.0-39.1); MEAN CORPUSCULAR HEMOGLOBIN 29.9 pg (28-32); MEAN CORPUSCULAR HGB CONC 31.3 g/dL (31-35); MEAN CORPUSCULAR VOLUME 95.8 fL (81-99); MONOCYTES # (AUTO) 0.4 (0.2-0.8); MONOCYTES % 7.7 % (4.4-11.3); NEUTROPHILS # (AUTO) 3.4 (2.1-6.9); NEUTROPHILS % 64.4 % (38.7-80.0); PLATELET COUNT 195 x10e3/uL (140-360); RED BLOOD COUNT 3.34 x10e6/uL (3.6-5.1); RED CELL DISTRIBUTION WIDTH 13.8 % (11.7-14.4); WHITE BLOOD COUNT 5.34 x10e3/uL (4.8-10.8)
[2024-06-26 19:49] LABS: ALBUMIN 3.7 g/dL (3.5-5.0); ALBUMIN/GLOBULIN RATIO 0.9 (0.8-2.0); ANION GAP 13.6 mmol/L (8-16); BILIRUBIN,TOTAL 0.4 mg/dL (0.2-1.2); CALCIUM 9.9 mg/dL (8.4-10.2); CREATININE, SERUM 1.86 mg/dL (0.57-1.11); TOTAL PROTEIN 7.6 g/dL (6.5-8.1)
[2024-06-26 19:53] LABS: POTASSIUM 5.6 mmol/L (3.5-5.1)
[2024-06-26 19:56] LABS: TROPONIN I 0.016 ng/mL (0-0.300)
[2024-06-26] MEDS: INSULIN REGULAR, HUMAN 100 UNIT/1 ML IV ONE (21:16)
[2024-06-26] MEDS: CALCIUM GLUC 1 G/50 ML NACL 50 ML IV ONE (21:24)
[2024-06-26] MEDS: SODIUM CHLORIDE 0.9% 1000ML 1,000 ML IV SCH (21:25)
[2024-06-26] MEDS: DEXTROSE 50% SYRINGE 50 ML IV ONE (21:25)
[2024-06-26] MEDS: SODIUM BICARBONATE 8.4% INJ 50 ML SYR IV STA (21:25)
[2024-06-26] MEDS: FUROSEMIDE INJ 10 MG/ML 10 ML VIAL IV ONE (21:56)
[2024-06-27 00:40] LABS: ANION GAP 15.2 mmol/L (8-16); CALCIUM 10.3 mg/dL (8.4-10.2); CREATININE, SERUM 1.68 mg/dL (0.57-1.11)
[2024-06-27 00:45] LABS: POTASSIUM 5.2 mmol/L (3.5-5.1)
[2024-06-27 01:01] LABS: TROPONIN I 0.018 ng/mL (0-0.300)
[2024-06-27 01:29] VITALS: PULSE 65; RESP 16; TEMP 98.9; O2SAT 100
== END 2024-06-27 01:30 | disposition home or self-care (01) ==
LOC: ER 18:40
DX: E87.5 Hyperkalemia (principal); N28.9 Disorder of kidney and ureter, unspecified; R53.81 Other malaise; R53.1 Weakness; I10 Essential (primary) hypertension; E11.65 Type 2 diabetes mellitus with hyperglycemia; I25.10 Atherosclerotic heart disease of native coronary artery without angina pectoris; R94.31 Abnormal electrocardiogram [ECG] [EKG]; Z85.41 Personal history of malignant neoplasm of cervix uteri; Z95.810 Presence of automatic (implantable) cardiac defibrillator; Z86.73 Personal history of transient ischemic attack (TIA), and cerebral infarction without residual deficits
CPT/HCPCS: 36415; 71045; 80053; 82550; 82948; 83690; 83880; 84484; 85025; 93005; 99284; J1940; J7030; J7799; 80048